=== PATIENT | male | born 1965 | race Caucasian/White ===

== ENCOUNTER 2017-02-12 09:33 | Emergency (ER) | payer OTHER, BC ==
[2017-02-12] MEDS ORDERED: NAPROXEN 375 MG TABLET (FP) PO ONE (09:39)
[2017-02-12] MEDS ORDERED: NAPROXEN 375 MG TABLET (FP) ONE (09:46)
[2017-02-12 09:48] VITALS: BP 116/82; PULSE 53; TEMP 97.5; BMI 25.0
--- NOTE | 2017-02-12 10:41 | PDOC ---
History of Present Illness - General Chief Complaint: Injury Stated Complaint: INJURY OF RIGHT THUMB Time Seen by Provider: 02/12/17 09:39 History Source: Patient Exam Limitations: No Limitations - History of Present Illness Initial Comments: 02/12/17 10:44 This is a 51 yo right hand dominant male who presents with right thumb injury last night. He explains that he accidentally smashed his right thumb with heavy door last night and has had throbbing pain to the thumb since that time. He also notes blood underneath the thumb nail which seems to be at the location of worst pain. He took ibuprofen 400 mg last night and was able to sleep. Since the injury he has had no numbness or tingling to the thumb. He has been able to move all joints in the thumb but does not a limited range of motion which has worsened with the increased swelling. He denies any additional injuries sustained in the incident last night. He denies use of any blood thinning agents , but does note taking fish oil occasionally. Past History - Past Medical History Allergies/Adverse Reactions: Allergies Allergy/AdvReac Type Severity Reaction Status Date / Time No Known Allergies Allergy Verified 02/12/17 09:37 Home Medications: Ambulatory Orders Naproxen [EC-Naprosyn 375 MG] 375 mg PO BID PRN #10 tab 02/12/17 Other medical history: DENIES - Surgical History Cholecystectomy: Yes - Immunization History Td Vaccination: Yes TDAP Vaccination: Yes Immunization Up to Date: Yes - Psycho/Social/Smoking Cessation Hx Anxiety: No Suicidal Ideation: No Smoking Status: No Smoking History: Never smoked Number of Cigarettes Smoked Daily: 0 Information on smoking cessation initiated: No Hx Alcohol Use: No Drug/Substance Use Hx: No Substance Use Type: Alcohol Review of Systems - Review of Systems Able to Perform ROS?: Yes Is the patient limited Kosovan proficient: Yes Constitutional: No: Chills, Fever Respiratory: No: Cough, Shortness of Breath Musculoskeletal: Yes: Other (right thumb injury with pain and swelling). No: Back Pain, Neck Pain Integumentary: Yes: Other (bleeding under the right thumb nail). No: Rash Neurological: No: Numbness, Tingling, Weakness *Physical Exam - Vital Signs Last Vital Signs Temp Pulse Resp BP Pulse Ox 97.5 F L 53 L 16 116/82 16 L 02/12/17 09:35 02/12/17 09:35 02/12/17 09:35 02/12/17 09:35 02/12/17 09:35 - Physical Exam General Appearance: Yes: Nourished, Other (pleasant and conversive). No: Apparent Distress HEENT: positive: EOMI, Normal Voice, Hearing Grossly Normal Neck: negative: Rigid Respiratory/Chest: positive: Lungs Clear, Normal Breath Sounds. negative: Respiratory Distress Cardiovascular: positive: Regular Rhythm, Regular Rate. negative: Murmur Musculoskeletal: positive: Decreased Range of Motion (right thumb secondary to swelling) Extremity: positive: Normal Capillary Refill, Other (no right snuffbox tenderness, no tenderness on axial loading of the right thumb). 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, Fully Oriented, Alert, Normal Mood/ Affect, Normal Response, Motor Strength 5/5 Procedures - Nail Trephination Method of Drainage: 18 gauge needle Sterile Dressing Applied: Yes Finger Splint: No Progress: 02/12/17 14:34 Patient reports improved pain with drainage of sanguinous fluid ED Treatment Course - RADIOLOGY Radiology Studies Ordered: 02/12/17 14:35 Right thumb x-ray without e/o fracture or other bony abnormalities - Medications Given in the ED: ED Medications Discontinued Medications Generic Name Dose Route Start Last Admin Trade Name Freq PRN Reason Stop Dose Admin Naproxen 375 mg 02/12/17 09:39 02/12/17 09:48 Naprosyn - PO 02/12/17 09:40 375 mg ONCE ONE Administration Medical Decision Making - Medical Decision Making 51 yo male right hand dominant who suffered a crush injury to the right thumb last night. Now with continued pain, patient notes bleeding under the nailbed, patient concerned for thumb fracture. Most likely the patient's pain is 2/2 subungal hematoma and thumb contusion. Less likely thumb fracture, but x-ray is ordered to evaluate for this possibility. 02/12/17 12:35 Right thumb x-ray negative for fracture or other bony or articular abnormality. Patient reports improved pain with nail trepination procedure. Also given Naproxen with relief. The patient is comfortable discharging home with prescription for Naproxen. He is counseled on return precautions and will f/u with PCP or return to ED for emergency concerns *DC/Admit/Observation/Transfer Diagnosis at time of Disposition: Subungual hematoma - Discharge Dispostion Disposition: HOME Condition at time of disposition: Stable Admit: No - Prescriptions Prescriptions: Naproxen [EC-Naprosyn 375 MG] 375 mg PO BID PRN #10 tab PRN Reason: Pain - Patient Instructions Printed Discharge Instructions: DI for Subungual Hematoma Additional Instructions: You were seen today for a right thumb injury. We drained some of the fluid from beneath your thumb nail to help the pain. X-rays were taken of your thumb and they showed no fracture. Your pain should improve within the next few days. Please take naproxen 375 mg once every 12 hours as needed for pain. Please follow up with your primary care provider, or return to the emergency department for any further emergency concerns such as signs of infection.
--- NOTE | 2017-02-12 11:08 | PDOC ---
Attending Attestation - Resident Resident Name: Marisela Young - ED Attending Attestation I have performed the following: I have examined & evaluated the patient, The case was reviewed & discussed with the resident, I agree w/resident's findings & plan, Exceptions are as noted - HPI HPI: 02/12/17 11:06 Patient presents after getting his thumb caught in a closing [place] yesterday. He has a bruise under the nail, and swelling of the finger. There is pain in the distal thumb. He denies any other injuries. - Physicial Exam PE: 02/12/17 11:06 Positive swelling of the thumb Skin intact Circulation intact Small subungual hematoma under the proximal nail of the right thumb - Medical Decision Making 02/12/17 11:07 X-ray of the right thumb performed. Upon preliminary review, there is no fracture or dislocation. Final radiology reading is pending at the time of discharge. Procedure performed together with Dr. Ro. Skin prep and needle trephination performed to drain the right subungual hematoma of the thumb. Good drainage achieved. Bacitracin applied. Dressing applied. Patient advised regarding treatment and follow-up.
== END 2017-02-12 10:47 | disposition home or self-care (01) ==
LOC: FER 09:33
PROC: 0H9QXZZ Drainage of Finger Nail, External Approach (ICD-10-PCS; principal; 2017-02-12)
DX: S60.111A Contusion of right thumb with damage to nail, initial encounter (principal); W20.8XXA Other cause of strike by thrown, projected or falling object, initial encounter; Y93.89 Activity, other specified; Y92.9 Unspecified place or not applicable
CPT/HCPCS: 73140-TC-RT; 99281-25